=== PATIENT | female | born 1965 | race Caucasian/White ===

== ENCOUNTER 2017-02-25 08:24 | Day surgery (SDC) | payer MEDICAID, OTHER ==
[2017-02-25] VITALS (9 sets, daily range): BP systolic 109–135; BP diastolic 51–79; PULSE 64–79; RESP 14–18; Ht 152.4 cm; Wt 62.1 kg
[~2017-02-25] VITALS: Ht 152.4 cm; Wt 62.1 kg
--- NOTE | 2017-02-25 13:11 | PREOPHP ---
DATE OF ADMISSION: REASON FOR ADMISSION: Hysteroscopy and ablation. HISTORY OF PRESENT ILLNESS: This is a 51-year-old female, 4, para 2, with spontaneous vaginal deliveries. History of severe anemia with hemoglobin of 3.2 in August due to heavy bleeding. The patient had been in the ER due to endometrial hyperplasia and fibroid uterus that has been bleeding very heavily. She had no history of hot flashes, no history of perspiration, and 2 spontaneous abortions. At this time she was referred to me for evaluation and treatment. She has in the history, no problems with urination, no cardiovascular problems, lung problems, or gastrointestinal or genitourinary problems except for the bleeding and fibroids. There is no history of endocrine problems. ALLERGIES: NO ALLERGIES. SOCIAL HISTORY: No history of smoking, drinking, or alcohol usage. FAMILY HISTORY: Breast cancer on her mother's side. MEDICATIONS: This patient is only on vitamins and iron. SUMMARY: The patient is advised for a fractional dilatation and curettage, hysteroscopy, and hydrothermal ablation to see if we can stop this bleeding. The ultrasound reported fibroids, left ovarian cyst, and hyperplasia of endometrium, for which a dilatation and curettage will be done to rule out malignancy. She was placed on oral contraceptive to try to control the next period and to be able to treat the lining of the uterus for the possibility of some mucus fibroids. Her hormonal status is still good with no menopause at this time. The patient has no history of hypertension or endocrine disease, neurological or orthopedic disease, no history of any other organ failure. She has no allergies and family history is for breast cancer in her mother. PHYSICAL EXAMINATION: VITAL SIGNS: Stable. Blood pressure 110/60, pulse 80, respirations 16. She is 5'1", she is 136 pounds. HEENT: Head and neck are normal. BREASTS: Soft, nontender, no masses. CHEST: Clear. HEART: Normal sinus rhythm. BACK: Normal. ABDOMEN: Normal. GENITOURINARY: External genitalia is . Uterus has fibroid about 8 weeks size. Adnexa negative. EXTREMITIES: Within normal limits. RECTAL: Within normal limits. PLAN: With the history of severe anemia and the major hyperplasia, fibroid uterus, and left ovarian cyst, she is undergoing a dilatation and curettage for diagnosis of rule out malignancy, hysteroscopy with hydrothermal ablation. She has been advised of the possible risks and possible complications of the procedure with alternatives and options. Written information was provided. She had no more questions and agreed to go ahead with the procedure with full understanding and no more questions. Dictated By: Ita Bruks MD /demetris/stephani /Document#: [id number]
--- NOTE | 2017-02-25 14:25 | HPN ---
Date/Time of Note Date/Time of Note DATE: 02/25/17 TIME: 14:25 Interval H&P Admission Note Pt. seen H&P reviewed: No system changes KAYLA MONROE MD Feb 25, 2017 14:25
[2017-02-25] MEDS ORDERED: PROPOFOL 20 ML ONE (14:37)
[2017-02-25] MEDS ORDERED: FENTAnyl 50 MCG/ML VIAL ONE (14:37)
[2017-02-25] MEDS ORDERED: MIDAZOLAM 1 MG/ML 2 ML INJ ONE (14:37)
[2017-02-25] MEDS ORDERED: LIDOCAINE 2% (SDV) 5 ML INJ ONE (14:37)
[2017-02-25] MEDS ORDERED: METOCLOPRAMIDE 10 MG INJ ONE (14:43)
[2017-02-25] MEDS ORDERED: CEFAZOLIN 1 GM INJ ONE (14:43)
[2017-02-25] MEDS ORDERED: ONDANSETRON 4 MG INJ ONE (14:43)
[2017-02-25] MEDS ORDERED: KETOROLAC 30 MG INJ ONE (14:52)
[2017-02-25] MEDS ORDERED: OXYCODONE/ACETAMINOPHEN (5/325) TAB PO PRN ×2 (15:00)
[2017-02-25] MEDS ORDERED: PROCHLORPERAZINE 10 MG INJ IV PRN (15:00)
[2017-02-25] MEDS ORDERED: DIPHENHYDRAMINE 50 MG INJ IV PRN (15:00)
[2017-02-25] MEDS ORDERED: FENTAnyl 50 MCG/ML VIAL IV PRN (15:00)
[2017-02-25] MEDS ORDERED: MEPERIDINE 25 MG INJ IV PRN (15:00)
[2017-02-25] MEDS ORDERED: HYDROmorphONE (0.2 MG/ML) 10ML SYG IV PRN ×2 (15:00)
[2017-02-25] MEDS ORDERED: ONDANSETRON 4 MG INJ IV PRN (15:00)
--- NOTE | 2017-02-25 15:29 | PD.PPDC ---
CUSTOMS COMPLIANCE DIRECTOR Discharge Instruction Condition Patient Condition: Good Diet Diet: Resume Regular Diet Activity/Restrictions Activity: Normal Activity May Shower Restrictions: No Exercising No Lifting No Driving No Sexual Activity Nothing in the Vagina No [place]ox No Tampons, douche Follow-up Follow-up with Physician: 2, Week/Weeks Return to clinic for PRESS SET UP PERSON Instructions: Fever greater than 101 Chills Worsening abdominal pain Excessive Vaginal Bleeding More than 2 pads per hour Unable to tolerate diet KAYLA MONROE MD Feb 25, 2017 15:29
--- NOTE | 2017-02-25 15:38 | OPR ---
Date/Time of Note Date/Time of Note DATE: 02/25/17 TIME: 15:30 Operative Report Procedure Date: Feb 25, 2017 Preoperative Diagnosis INTRACTABLE PELVIC PAIN AND BLEEDING. LARGE FIBROIDS AND PERIMENOPAUSAL STAGE Postoperative Diagnosis SAME Operation Performed FRACTIONAL D&C HYSTEROSCOPY HYDROTHERMAL ABLATION Surgeon: KAYLA MONROE MD Anesthesia: general Anesthesiologist: JAQUAN KIMBALL MD Estimated Blood Loss: minimal Complications: None Pt Condition Post Procedure: stable Disposition: PACU KAYLA MONROE MD Feb 25, 2017 15:38
--- NOTE | 2017-02-28 04:38 | OPR ---
DATE OF OPERATION: 02/25/2017 PREOPERATIVE DIAGNOSES: Intractable pelvic pain and bleeding, large fibroid uterus, perimenopausal bleeding. POSTOPERATIVE DIAGNOSES: Intractable pelvic pain and bleeding, large fibroid uterus, perimenopausal bleeding. PROCEDURES PERFORMED: Fractional D and C, hysteroscopy, hydrothermal ablation. SURGEON: Ita Burks MD. ANESTHESIA: General. ANESTHESIOLOGIST: [____]. COMPLICATIONS: None. DESCRIPTION OF PROCEDURE: The patient was given general anesthesia and placed in the lithotomy position. The perineovaginal area were prepped and draped. Confirmatory examination under anesthesia revealed that the uterus was anteverted with a large fibroid. The adnexas were nonpalpable. The vaginal speculum was applied and the cervix was held. Endocervical curettage was done, and then the uterus was sounded to a depth of about 10 cm. The dilation of the cavity was done and the systematic curettage of the lining was found anteriorly, posteriorly, laterally and in the fundus, and this tissue was sent for histopathology. The hysteroscope was now placed in the cavity and the hydrothermal ablation machine was connected. The media was warmed up to 87 degrees, and 10 minutes of catheterization of the lining was done observing the discoloration and brownish color of the endometrial lining. The procedure was finished by cooling down the instruments in the water and removing the instruments. Additional hysteroscopy showed good ablation of the lining with submucous fibroids. The procedure was finished by removing all the instruments. The patient tolerated the procedure well and left the OR awake and stable. Sponge counts and instrument counts were correct and intravenous antibiotics were given for prophylaxis. Dictated By: Ita Burks MD /demetris/brock /Document#: [id number]
== END 2017-02-25 17:09 | disposition home or self-care (01) ==
LOC: SDS 08:24
PROVIDERS: ATTEND Obstetrics & Gynecology
DX: D25.9 Leiomyoma of uterus, unspecified (principal); Z78.0 Asymptomatic menopausal state
CPT/HCPCS: 58563; 88305; J0690; J1885; J2175; J2250; J2405; J2765; J3010